=== PATIENT | male | born 1970 | race Caucasian/White ===

== ENCOUNTER 2018-12-09 12:17 | Emergency (ER) | payer MEDICAID ==
[~2018-12-09] VITALS: Ht 182.9 cm; Wt 113.4 kg
--- NOTE | 2018-12-09 13:23 | NUR ---
Pt out of ER fpr CT.
--- NOTE | 2018-12-09 13:35 | NUR ---
Pt back from ct, resting in bed, family at the bedside.
--- NOTE | 2018-12-09 17:17 | NUR ---
Patient discharged to home in stable conditon. Written and verbal after care instructions given. Patient verbalizes understanding of instructions.
== END 2018-12-09 17:18 | disposition home or self-care (01) ==
LOC: ER 12:18
DX: S30.1XXA Contusion of abdominal wall, initial encounter (principal); F17.200 Nicotine dependence, unspecified, uncomplicated; V49.9XXA Car occupant (driver) (passenger) injured in unspecified traffic accident, initial encounter; Y93.89 Activity, other specified; Y92.410 Unspecified street and highway as the place of occurrence of the external cause; Y99.8 Other external cause status
CPT/HCPCS: 71250; A4663